=== PATIENT | male | born 1930 | race Caucasian/White ===

== ENCOUNTER 2016-05-05 13:02 | Inpatient (IN) | payer MEDICARE, MEDICAID ==
[~2016-05-05] VITALS: Ht 167.6 cm; Wt 73.2 kg
[~2016-05-05 13:02] MED LIST: AMBIEN 5MG TABLE5 MG PO; ARICEPT10 MG PO; CRESTOR5 MG PO; CYMBALTA 30MG30 MG PO; DIABETA 2.5MG2.5 MG PO; FLOMAX 0.40.4 MG/CAP PO; GLUCOVANCE 2.51 TAB PO; IMDUR 30MG30 MG/TAB PO; KLONOPIN 0.5MG0.5 MG PO; LORTAB 10/500 51 TAB PO; METFORMIN500 MG PO; MILK OF MA400 MG/52 PO; MIRALAX PA17 GM/Dose PO; NAMENDA 10MG TA10 MG PO; NORCO 325 MG-101 TAB PO; NOVLOG SQ; PLAVIX 75MG TAB75 MG PO; PROTONIX 40MG T40 MG PO; SENNA8.6 MG PO; SYNTHROID0.1 MG PO; SYNTHROID0.1 MG/TAB PO; TOPROL XL 25MG25 MG PO; XANAX .25M0.25 MG/TA PO; ZESTRIL 10MG10 MG PO
[2016-05-05 13:35] LABS: BASO % 0.4 % (0.0-2.0); EOS # 0.2 (0.0-0.7); GRAN # 6.6 (1.4-6.5); GRAN % 72.7 % (42.2-75.2); HEMOGLOBIN 13.4 g/dl (13.5-18.0); LYMPH # 1.8 (1.2-3.4); LYMPH % 19.7 % (20.0-51.0); MEAN CELL VOLUME 92 fl (80.0-100.0); MEAN CORPUSCULAR HEMOGLOBIN 31 pg (27.0-31.0); MEAN CORPUSCULAR HGB CONC 34 g/dl (33.0-37.0); MEAN PLATELET VOLUME 9.9 fl (7.4-10.4); MONO # 0.4 (0.1-0.6); MONO % 4.9 % (1.7-9.3); PLATELET COUNT 337 K/mm3 (130-400); RED BLOOD COUNT 4.35 M/mm3 (4.20-5.60); REDCELL DISTRIBUTION WIDTH-CV 13.1 % (11.5-14.5); WHITE BLOOD COUNT 9.1 K/mm3 (4.8-10.8)
[2016-05-05] MEDS ORDERED: ALMACONE 360 M360 ML PO (13:37)
[2016-05-05] MEDS ORDERED: DULCOLAX S10 MG/SUPP RC (13:37)
[2016-05-05] MEDS ORDERED: TYLENOL 325MG325 MG PO (13:38)
[2016-05-05] MEDS ORDERED: TYLENOL SU650 MG/SUP RC (13:38)
[2016-05-05] MEDS ORDERED: TEARS NATURALE1 EACH OP (13:39)
[2016-05-05] MEDS ORDERED: ASPERCREME85G TP (13:39)
[2016-05-05] MEDS ORDERED: RITALIN 5MG5 MG/TAB PO ×2 (13:40→14:21)
[2016-05-05] MEDS ORDERED: AMARYL1 MG PO (13:40)
[2016-05-05 13:42] LABS: INR 1.1 (0.8-3.0); PROTHROMBIN TIME 12.2 SECONDS (9.7-12.8)
[2016-05-05 14:01] LABS: ADJUSTED CALCIUM 9.2 mg/dL (8.4-10.2); BILIRUBIN,TOTAL 0.7 mg/dL (0.0-1.0); CALCIUM 9.2 mg/dL (8.4-10.2); CREATININE, serum 1.49 mg/dL (0.66-1.25); POTASSIUM 4.3 mmol/L (3.4-5.0); TOTAL PROTEIN 7.6 gm/dL (6.4-8.2)
[2016-05-05] MEDS ORDERED: TYLENOL 500MG500 MG PO (14:22)
[2016-05-05] MEDS ORDERED: NEURONTIN100 MG/CAP PO (14:25)
[2016-05-05] MEDS ORDERED: IMODIUM 2MG CAPS2 MG PO (14:25)
[2016-05-05] MEDS ORDERED: CYMBALTA 60MG60 MG PO (14:25)
[2016-05-05] MEDS ORDERED: DESYREL 50MG50 MG PO (14:26)
[2016-05-05 18:08] VITALS: BP 158/84; PULSE 91; TEMP 98.1
[2016-05-05 18:10] VITALS: BP 158/84; PULSE 88; TEMP 98.4
[2016-05-05 20:23] VITALS: BP 153/77; PULSE 93; TEMP 98.6
[2016-05-05 23:45] VITALS: BP 141/74; PULSE 80; TEMP 97.5
[2016-05-06 04:40] VITALS: BP 131/59; PULSE 78; TEMP 100
[2016-05-06 07:51] VITALS: BP 150/54; PULSE 88; TEMP 99.9
[2016-05-06 11:52] VITALS: BP 133/68; PULSE 111; TEMP 100
[2016-05-06 16:02] VITALS: BP 118/63; PULSE 100; TEMP 99.9
[2016-05-06 19:38] VITALS: BP 151/57; PULSE 53; TEMP 100.9
[2016-05-06 23:55] VITALS: BP 125/64; PULSE 77; TEMP 98.2
[2016-05-07 04:02] VITALS: BP 130/62; PULSE 82; TEMP 98.2
[2016-05-07 08:12] VITALS: BP 150/71; PULSE 100; TEMP 97.4
[2016-05-07 08:42] LABS: BASO # 0.1 (0.0-0.2); BASO % 0.4 % (0.0-2.0); EOS # 0.1 (0.0-0.7); EOS % 0.6 % (0-4.0); GRAN # 9.7 (1.4-6.5); GRAN % 77.6 % (42.2-75.2); HEMATOCRIT 39.8 % (42.0-52.0); HEMOGLOBIN 13.1 g/dl (13.5-18.0); LYMPH # 1.7 (1.2-3.4); LYMPH % 13.9 % (20.0-51.0); MEAN CELL VOLUME 93 fl (80.0-100.0); MEAN CORPUSCULAR HEMOGLOBIN 31 pg (27.0-31.0); MEAN CORPUSCULAR HGB CONC 33 g/dl (33.0-37.0); MEAN PLATELET VOLUME 10.2 fl (7.4-10.4); MONO # 0.9 (0.1-0.6); PLATELET COUNT 314 K/mm3 (130-400); REDCELL DISTRIBUTION WIDTH-CV 13.4 % (11.5-14.5); WHITE BLOOD COUNT 12.5 K/mm3 (4.8-10.8)
[2016-05-07 09:00] LABS: CALCIUM 9.1 mg/dL (8.4-10.2); CREATININE, serum 1.71 mg/dL (0.66-1.25); POTASSIUM 4.4 mmol/L (3.4-5.0)
[2016-05-07 12:21] LABS: PH 5 (5-8); SQUAMOUS EPITHELIAL 0-2 /hpf; URINE APPEARANCE Clear; URINE BACTERIA Rare /hpf; URINE BILIRUBIN Negative (NEGATIVE); URINE BLOOD 1+ (NEGATIVE); URINE COLOR Yellow; URINE GLUCOSE Negative (NEGATIVE); URINE KETONE 1+ (NEGATIVE); URINE UROBILINOGEN Negative (NEGATIVE); URINE WBC 0-2 /hpf
[2016-05-07 12:30] VITALS: BP 152/80; PULSE 100; TEMP 99.9
[2016-05-07 16:27] VITALS: BP 139/78; PULSE 103; TEMP 101.2
[2016-05-07 19:48] VITALS: BP 174/85; PULSE 103; TEMP 98.2
[2016-05-08] VITALS (7 sets, daily range): BP systolic 139–161; BP diastolic 69–86; PULSE 59–108; TEMP 98.2–99.9
[2016-05-08] MEDS ORDERED: IPRATROPIUM BROM3 M1 IH (09:58)
[2016-05-08] MEDS ORDERED: ZOFRAN ODT8 MG PO (10:01)
[2016-05-08] MEDS ORDERED: ROXANOL 20MG20 MG/ML PO (10:02)
[2016-05-08] MEDS ORDERED: LORAINT PO (10:02)
[2016-05-09 04:49] VITALS: BP 146/66; PULSE 101; TEMP 97.4
[2016-05-09 08:29] VITALS: BP 147/75; PULSE 110; TEMP 98.1
[2016-05-09] MEDS ORDERED: TRANSDERM-0.5 MG/21 TD (10:52)
[2016-05-09 11:52] VITALS: BP 147/75; PULSE 110; TEMP 98.1
[2016-05-09 12:26] VITALS: BP 139/78; PULSE 88; TEMP 98.3
== END 2016-05-09 14:06 | disposition hospice, inpatient (51) | DRG 64 ==
LOC: COL.ER 13:02 → MEDICAL 14:50
PROVIDERS: Family Medicine; Internal Medicine
DX: I63.8 Other cerebral infarction (principal); J69.0 Pneumonitis due to inhalation of food and vomit; G81.91 Hemiplegia, unspecified affecting right dominant side; I13.0 Hypertensive heart and chronic kidney disease with heart failure and stage 1 through stage 4 chronic kidney disease, or unspecified chronic kidney disease; I50.42 Chronic combined systolic (congestive) and diastolic (congestive) heart failure; Z51.5 Encounter for palliative care; Z66 Do not resuscitate; R47.01 Aphasia; R13.10 Dysphagia, unspecified; I73.9 Peripheral vascular disease, unspecified; I25.10 Atherosclerotic heart disease of native coronary artery without angina pectoris; F01.50 Vascular dementia, unspecified severity, without behavioral disturbance, psychotic disturbance, mood disturbance, and anxiety; E11.22 Type 2 diabetes mellitus with diabetic chronic kidney disease; N18.3 Chronic kidney disease, stage 3 (moderate); F03.90 Unspecified dementia, unspecified severity, without behavioral disturbance, psychotic disturbance, mood disturbance, and anxiety; E11.42 Type 2 diabetes mellitus with diabetic polyneuropathy; Z87.891 Personal history of nicotine dependence; Z95.1 Presence of aortocoronary bypass graft; R29.810 Facial weakness
CPT/HCPCS: 99223-AI; 99233-AI; 99239; J1650; J1815; J7030